=== PATIENT | female | born 2000 | race Caucasian/White ===

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

== ENCOUNTER 2020-01-25 19:21 | Emergency (ER) | payer OTHER, SELFPAY ==
--- NOTE | 2020-01-25 19:41 | HMH.EDUTC ---
[facility] – [place] Disposition Clinical Impression: Exposure to COVID-19 virus Disposition: Home, Self-Care Condition on Discharge: Good Instructions: Preventing the Spread of Coronavirus Discharge Instructions Referrals: Allen Elizabeth APRN [Primary Care Provider] - Time of Disposition: 19:48 Medical Decision Making - Darrell Inquiry Pt receiving controlled substance: No Orders (Tests/Meds): ORDERS Category Date Time Status Coronavirus 19 Swab (OUTPT) Routine Lab 01/25/20 19:31 Received [facility] [place] HPI - General Stated complaint: covid symptoms/ covid test Time Seen by Provider: 01/25/20 19:41 - History of Present Illness Provider Complaint: Sore throat, cough, fever X 2 days. Diarrhea. Has been exposed to COVID19 thru 2 friends. Onset (ago): day(s) (2) Location: abdomen Relieving factors: none Exacerbating factors: none Associated symptoms: cough, fever/chills, nausea/vomiting Treatments prior to arrival: none - Related Data Home Medications Medication Instructions Recorded Confirmed sertraline 25 mg tablet 25 mg PO Q24H 10/20/17 11/22/18 diclofenac sodium 1 % topical gel TOPICAL #100 g 11/09/18 11/22/18 Allergies Allergy/AdvReac Type Severity Reaction Status Date / Time No Known Allergies Allergy Verified 11/22/18 16:18 [facility] History - Hepatitis A Screen Attestation statement:: This patient has been screened for Hepatitis A risk factors. I have reviewed the patient's past medical history: Yes Medical History: Reports:: Anxiety, Depression, Migraine Denies:: Cancer, Diabetes Mellitus Type 1, Diabetes Mellitus Type 2, Hypertension, MRSA Other Medical History: Reports: Sinus Problems, Other Comment: Arthrogryposis Laterality Cases: Bilateral: Other Other Surgeries: Yes: No Previous Surgery, Other Amputation: No Fractures: Yes (FEMUR) Comment: Multiple Tendon Repairs, dislocated hip, oral surgery, right hand osteotomy - Social History Smoking Status: Never smoker Alcohol Intake: never Substance Use Type: denies use Occupational Status: student, disabled Housing: house Household Members: family - Psychiatric History Pschychiatric History:: Reports:: Anxiety, Depression Family Hx:: No significant family history ROS Obtained: Yes All systems reviewed & no additional complaints - Constitutional Constitutional: Reports body ache, Reports chills, Reports fever(s) - ENT Ears, Nose, Mouth, and Throat: Reports headache(s), Reports nasal congestion, Reports nasal discharge, Reports sore throat - Gastrointestinal Gastrointestingal: Reports: loose stools Physical Exam - General General appearance: alert, in no apparent distress - Head Head exam: atraumatic, normocephalic, normal inspection - Eye Eye exam: Present: normal appearance, PERRL, EOMI - ENT ENT exam: Present: normal exam, normal oropharynx, mucous membranes moist, TM's normal bilaterally, normal external ear exam - Neck Neck exam: Present: normal inspection, full ROM, trachea midline. Absent: meningismus, lymphadenopathy - Chest Chest inspection: Present: normal inspection, symmetric chest wall rise. Absent: tenderness - Respiratory Respiratory exam: Present: normal lung sounds bilaterally. Absent: respiratory distress - Cardiovascular Cardiovascular exam: Present: regular rate, normal rhythm. Absent: JVD - Abdominal Exam Abdominal exam: Present: soft, normal bowel sounds. Absent: distention, tenderness, guarding - Extremities Exam Extremities exam: Present: normal inspection, full ROM, normal capillary refill. Absent: calf tenderness - Back Exam Back exam: Present: normal inspection. Absent: tenderness - Neurological Exam Neurological exam: Present: alert, oriented X3 - Psychiatric Psychiatric exam: Present: normal affect, normal mood - Skin Skin exam: Present: warm, dry, intact, normal color - Lymphatic Lymphatic Findings: no adenopathy
[2020-01-25 19:42] VITALS: BP 128/95; PULSE 107; RESP 19; TEMP 36.9; O2SAT 98; BMI 36.3
[2020-01-25 19:53] VITALS: BP 128/95; PULSE 107; RESP 19; TEMP 36.9; O2SAT 98
--- NOTE | 2020-01-25 22:14 | PC.NURSE ---
COVID TEST positive. Dr. Gilbert aware. Patient notified.
== END 2020-01-25 19:55 | disposition home or self-care (01) ==
PROVIDERS: Emergency Provider Physician Assistant; PCP Nurse Practitioner Family
DX: Z20.828 Contact with and (suspected) exposure to other viral communicable diseases (principal); F41.8 Other specified anxiety disorders; G43.709 Chronic migraine without aura, not intractable, without status migrainosus
CPT/HCPCS: 99201; U0003